=== PATIENT | female | born 1970 | race Caucasian/White ===

== ENCOUNTER 2019-10-07 09:25 | Emergency (ER) | payer MEDICARE ==
[2019-10-07] MEDS ORDERED: NORMAL SALINE 1000 ML 1,000 ML IV ONE (09:52)
[2019-10-07] MEDS ORDERED: ONDANSETRON HCL INJ/PF 4 MG/2 ML SDV IV ONE (09:52)
--- NOTE | 2019-10-07 09:54 | ER Document Report ---
ED Medical Screen (RME) - General Chief Complaint: Diarrhea Stated Complaint: DIARRHEA Time Seen by Provider: 10/07/19 09:52 Notes: Patient is a 49-year-old female with a history of hypothyroid who presents emergency department with a chief complaint of diarrhea. Patient reports she has had diarrhea for 1 month. Patient reports she does have diarrhea multiple times per hour. Patient states there is no blood in the stool. Patient reports at times she will have some lower abdominal cramping. Patient denies fever. Patient denies vomiting. Patient denies sick contacts at home or recent travel outside of the country. Patient reports she has been attempting to use Imodium without relief. Patient reports she is on metformin and thought this was the cause so she did stop it yesterday. Past Medical History - Social History Chew tobacco use (# tins/day): No Frequency of alcohol use: None Drug Abuse: None Physical Exam - Vital signs Vitals: Temp Pulse Resp BP Pulse Ox 97.7 F 91 18 121/75 96 10/07/19 09:30 10/07/19 09:30 10/07/19 09:30 10/07/19 09:30 10/07/19 09:30 - Abdominal Inspection: Normal Distension: No distension Bowel sounds: Normal Tenderness: Nontender Organomegaly: No organomegaly Course - Re-evaluation Re-evalutation: 10/07/19 09:54 I have greeted and performed a rapid initial assessment of this patient. A comprehensive ED assessment and evaluation of the patient, analysis of test results and completion of the medical decision making process will be conducted by additional ED providers. - Vital Signs Vital signs: Temp Pulse Resp BP Pulse Ox 97.7 F 91 18 121/75 96 10/07/19 09:52 10/07/19 09:30 10/07/19 09:52 10/07/19 09:30 10/07/19 09:52
[2019-10-07 10:41] LABS: ALBUMIN 4.7 g/dL (3.5-5.0); ALKALINE PHOSPHATASE 109 U/L (38-126); ANION GAP 13 (5-19); ASPARTATE AMINO TRANSFERASE 20 U/L (14-36); BILIRUBIN,DIRECT 0.1 mg/dL (0.0-0.4); BILIRUBIN,TOTAL 0.6 mg/dL (0.2-1.3); BLOOD UREA NITROGEN 15 mg/dL (7-20); CALCIUM 9.8 mg/dL (8.4-10.2); CARBON DIOXIDE 16 mmol/L (22-30); CHLORIDE 114 mmol/L (98-107); GLUCOSE 121 mg/dL (75-110); POTASSIUM 3.7 mmol/L (3.6-5.0); TOTAL PROTEIN 7.8 g/dL (6.3-8.2)
[2019-10-07 10:44] LABS: HEMATOCRIT 44.2 % (36.0-47.0); HEMOGLOBIN 15.1 g/dL (12.0-15.5); MEAN CORPUSCULAR HEMOGLOBIN 29.5 pg (27.0-33.4); MEAN CORPUSCULAR HGB CONC 34.2 g/dL (32.0-36.0); MEAN CORPUSCULAR VOLUME 86 fl (80-97); PLATELET COUNT 246 10^3/uL (150-450); RED BLOOD COUNT 5.13 10^6/uL (3.72-5.28); RED CELL DISTRIBUTION WIDTH 12.6 % (11.5-14.0); WHITE BLOOD COUNT 7.7 10^3/uL (4.0-10.5)
[2019-10-07 12:08] LABS: APPEARANCE,URINE SLIGHTLY-CLOUDY; BILIRUBIN,URINE NEGATIVE (NEGATIVE); COLOR,URINE YELLOW; GLUCOSE, URINE NEGATIVE (NEGATIVE); KETONES,URINE NEGATIVE (NEGATIVE); LEUKOCYTE ESTERASE,URINE NEGATIVE (NEGATIVE); NITRITE,URINE NEGATIVE (NEGATIVE); PROTEIN,URINE NEGATIVE (NEGATIVE); URINE SPECIFIC GRAVITY 1.016; UROBILINOGEN,URINE NEGATIVE mg/dL (<2.0)
--- NOTE | 2019-10-07 13:16 | ER Document Report ---
ED General - General Chief Complaint: Diarrhea Stated Complaint: DIARRHEA Time Seen by Provider: 10/07/19 09:52 - HPI Notes: Patient is a 49-year-old female with a history of type 2 diabetes and on metformin who presents complaining of having watery diarrhea for the past month. Patient states that she will have a few episodes per day and her last episode was this morning. There is no black or tarry stools associated. Patient states that she has not had to have a bowel movement since this morning. She has been using Imodium that has not been resolving her symptoms. Patient states that she has not been outside the country or eaten any raw foods. No recent illness or use of antibiotics. No surgeries to her abdomen. She is otherwise feeling well. She is urinating normally. No other vaginal discharge, odor, or ble eding. Denies any headache, fever, neck pain, URI, sore throat, chest pain, palpitations, syncope, cough, shortness of breath, wheeze, dyspnea, abdominal pain, nausea/vomiting, urinary retention, dysuria, hematuria, back pain, or rash. - Related Data Allergies/Adverse Reactions: cephalexin [From Keflex] Allergy (Verified 10/07/19 09:53) duloxetine [From Cymbalta] Allergy (Verified 10/07/19 09:53) sulfur dioxide Allergy (Verified 10/07/19 09:53) Past Medical History - Social History Smoking Status: Current Every Day Smoker Chew tobacco use (# tins/day): No Frequency of alcohol use: None Drug Abuse: None Family History: Reviewed & Not Pertinent Patient has suicidal ideation: No Patient has homicidal ideation: No Review of Systems - Review of Systems -: Yes All other systems reviewed and negative Physical Exam - Vital signs Vitals: Temp Pulse Resp BP Pulse Ox 97.7 F 91 18 121/75 96 10/07/19 09:30 10/07/19 09:30 10/07/19 09:30 10/07/19 09:30 10/07/19 09:30 - Notes Notes: PHYSICAL EXAMINATION: GENERAL: Well-appearing, well-nourished and in no acute distress. HEAD: Atraumatic, normocephalic. EYES: Pupils equal round and reactive to light, extraocular movements intact, sclera anicteric, conjunctiva are normal. ENT: Nares patent and without discharge. oropharynx clear without exudates. No tonsilar hypertrophy or erythema. Moist mucous membranes. NECK: Normal range of motion, supple without lymphadenopathy LUNGS: Breath sounds clear to auscultation bilaterally and equal. No wheezes rales or rhonchi. HEART: Regular rate and rhythm without murmurs, rubs, gallops. ABDOMEN: Soft, nontender, nondistended abdomen. No guarding, no rebound. Normal bowel sounds present. No CVA tenderness bilaterally. Musculoskeletal: FROM to passive/active. Strength 5+/5. Extremities: No cyanosis, clubbing, or edema b/l. Peripheral pulses 2+. Capillary refill less than 3 seconds. NEUROLOGICAL: Normal speech, normal gait. PSYCH: Normal mood, normal affect. SKIN: Warm, Dry, normal turgor, no rashes or lesions noted. Course - Re-evaluation Re-evalutation: 10/07/19 13:12 Patient is an afebrile, well-hydrated, 49-year-old female who presents with watery diarrhea without recurrence throughout her stay which could potentially be side effect of metformin versus viral versus other GI process, but overall suspect benign. Vitals are acceptable without significant tachycardia, tachypnea, or hypoxia. PE is otherwise unremarkable. Patient's abdomen is soft and nontender. She is nontoxic-appearing and is tolerating p.o. without diffi culty. Patient has been drinking fluids and eating multiple packets of crackers without any difficulties. Patient states that she has not had to have a bowel movement so she cannot provide a sample for us today. She otherwise is feeling well and would like to go home. Labs are otherwise unremarkable. She was given fluids and a dose of Zofran. Low suspicion/risk for acute appendicitis, bowel obstruction, acute cholecystitis, acute cholangitis, perforated diverticulitis, incarcerated hernia, pancreatitis, perforated ulcer, peritonitis, sepsis, pelvic inflammatory disease, ectopic , tubo-ovarian abscess, ovarian torsion, or other systemic emergent condition at this time. Patient is aware that her condition can change from initial presentation and she needs to monitor symptoms closely and seek medical attention if any acute changes. Conservative measures otherwise for symptoms. Recheck with your PCM in 2-3 days. Consider consult with a md physician dermatologist. Return to the ED with any worsening/concerning symptoms otherwise as reviewed in discharge. Patient is in agreement. - Vital Signs Vital signs: Temp Pulse Resp BP Pulse Ox 97.7 F 91 18 121/75 96 10/07/19 09:52 10/07/19 09:30 10/07/19 09:52 10/07/19 09:30 10/07/19 09:52 - Laboratory Result Diagrams: 10/07/19 10:15 10/07/19 10:15 Laboratory results interpreted by me: 10/07/19 10:15 Chloride 114 H Carbon Dioxide 16 L Glucose 121 H Discharge - Discharge Clinical Impression: Diarrhea Qualifiers: Diarrhea type: unspecified type Qualified Code(s): R19.7 - Diarrhea, unspecified Condition: Stable Disposition: HOME, SELF-CARE Instructions: Diarrhea, Nonspecific ([facility]) Additional Instructions: Maintain adequate fluid and food intake increase fiber/water in diet over the counter meds as needed tylenol if needed Monitor for any worsening symptoms Make sure you are staying hydrated enough to urinate and have normal BM's Recheck with your PCM in 2-3 days Consider consult with Gastroenterology for ongoing/worsening symptoms Return to the ED with any worsening symptoms and/or development of fever, headache, chest pain, palpitations, syncope, shortness of breath, trouble breathing, abdominal pain, n/v/d, blood in stool/urine, weakness, or other worsening symptoms that are concerning to you. Prescriptions: Psyllium Husk 1,000 gm MC DAILY #2 powder Forms: Smoking Cessation Education Referrals: PREETI HAIRSTON MD [ACTIVE STAFF] - Follow up as needed [facility] [Provider Group] - Follow up as needed
[2019-10-07 13:33] VITALS: BP 125/80
== END 2019-10-07 13:33 | disposition home or self-care (01) ==
LOC: ER 09:25
DX: R19.7 Diarrhea, unspecified (principal); F17.200 Nicotine dependence, unspecified, uncomplicated; E11.9 Type 2 diabetes mellitus without complications; Z79.84 Long term (current) use of oral hypoglycemic drugs
CPT/HCPCS: 99284; 96361; 96374; 36415; 85027; 80053; 81001; J2405; J7030